=== PATIENT | female | born 1980 | race Caucasian/White ===

== ENCOUNTER → 2016-11-20 | Outpatient (CLI) | payer OTHER ==
--- NOTE | 2016-11-20 11:15 | US ---
November 20, 2015 Dear Providers at [facility] [place] [facility], Thank you for allowing me to see your patient, Mrs. Hernandez for aneuploidy screening and cons ult. As you know she is a 36 year-old, 3, para 1011. Her due date is 05/31/17 by LMP of 10/27. Based on this dating her current gestational age is 12 weeks 4 days. 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 She has already been started on a folate sup plement. Unfortunately, her fasting homocysteine levels were assessed while on vitamin support and m ay not be an actual representation of her true homocysteine levels. ULTRASOUND LMP: 08/23/16 Gestational age by LMP: 12 weeks 4 days REJI by LMP: 05/31/17 CRL: 64 mm Gestational Age by CRL: 12 weeks 4 days REJI by CRL: 05/31/17 Consistent with established dating (LMP or ultrasound): Yes Nuchal Translucency: 1.7 mm Nasal Bone: Present Heart Rate: 160 bpm Placenta: Posterior Right Ovary: Is visualized and appears normal. It measures 1.1 x 0.7 x 1.2 cm. Left Ovary: Is visualized and appears normal. It measures 2.4 x 0.8 x 2.0 cm. No overt structural anomalies were identified for this early ultrasound. The choroids, cord insertion , situs, upper extremities and lower extremities were visualized and appear normal for this gestation al age. Please note the full anatomic evaluation has not occurred for this early gestational age. Impression: 1. Intrauterine at 12w, 4d, REJI of 05/31/17. 2. Nuchal translucency measurement today is 1.7 mm, which is reassuring. 3. Advanced maternal age; reassuring NIPT 4. Prior section for arrest of dilation 5. 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 Maternal serum AFP is recommended between 15-20 weeks to screen for the risk of open neural tube defects. 2. Recommend a detailed obstetrical ultrasound between 19 and 20 weeks to evaluate anatomy. 3. Reviewed aneuploidy screening and definitive genetic diagnosis for the information both can revea l including limitations. After our discussion, your patient DECLINED invasive testing. 4. Route of delivery likely to be discussed with her new provider in [place]. 5. Reassurance given regarding MTHFR in . This has not been demonstrated to increase the r isk of poor outcomes or even personal risk for VTE. However, if there are abnormal homocys teine levels there may be an increased risk of cardiovascular disease later in life. Given that she is on a folate supplement, this will need to be tested after she has stopped taking the vitamin. I r eassured her that there is no harm with this supplement while and this is best addressed aft er . We discussed low dose aspirin 81 mg also for women over age 35 to decrease the risk of preeclampsia as a separate issue. 6. Discussed previously and aware that it is not a concern for this offspring, but may potentially i mpact future generations and should be knowledge conveyed moving forward, particularly as there has b een a trend to poor ovarian reserve for herself and sister. Thank you for allowing us the opportunity to evaluate your patient. Should you have any further ques tions or concerns please do not hesitate to contact me. Approximately 25 minutes were spent with the patient and 15 minutes were spent in face to face consu ltation. Angy Garber MD [employer] Assistant Maternal Medicine Department of Obstetrics & Gynecology [facility]
--- NOTE | 2016-11-20 11:45 | US ---
First Trimester Obstetrical Sonography Clinical History: 36-year-old female with advanced maternal age, presenting for early evalua tion. Technique: A curvilinear 5 MHz transducer was used to sonographically evaluate the fetus and the waqar centa. M-mode Doppler was used. Dr. Angy Garber was present. Comparison Study: None currently available. LMP: August 24, 2016, indicating an age of 12 weeks 4 days, and an estimated date of delivery of 2016. Findings: There is a single viable intrauterine gestation with a crown-rump length of 64 mm, c orresponding to an age of 12 weeks 6 days. The heart rate is 160 beats per minute. The placenta is forming posteriorly. There is no focal fibroid of subchorionic hemorrhage. The maternal left ovar y is normal, measuring 2.4 x 0.8 x 2.0 cm, and the maternal right ovary measures 1.1 x 0.7 x 1.2 cm. The nuchal translucency is normal, measuring 1.7 mm. A nasal bone is seen. Impression: There is a single viable intrauterine gestation with 2 normal early screening snow ers. The patient should return at 20 weeks gestation for more complete anatomic screening and repeat biome try. Please also refer to Dr. Garber's separate assessments and specific recommendations for follow up.
== END ==
LOC: FIMAGING 09:53
PROVIDERS: ATTEND Obstetrics & Gynecology
DX: O99.281 Endocrine, nutritional and metabolic diseases complicating pregnancy, first trimester (principal); O09.522 Supervision of elderly multigravida, second trimester; O34.219 Maternal care for unspecified type scar from previous cesarean delivery; E72.12 Methylenetetrahydrofolate reductase deficiency; Q99.2 Fragile X chromosome; Z3A.12 12 weeks gestation of pregnancy